=== PATIENT | female | born 1990 | race Caucasian/White ===

== ENCOUNTER 2020-03-29 07:35 | Inpatient (IN) ==
--- OUTSIDE RECORDS SUMMARY | 2020-03-29 07:41 | External Medical Summary | Continuity of Care Document ---
:1990 Author Name Jose Santiago Address Unavailable Unavailable , Care Team Providers Name Role Phone Unavailable Unavailable Unavailable Unavailable Unavailable Unavailable Problems Cerumen impaction (380.4) (H61.20) Chronic tonsillitis (474.00) (J35.01) Allergies and Adverse Reactions No Known Drug Allergies (Allergy) Medications Medications not documented Procedures Procedures not documented Immunizations Immunizations not documented Family History Unknown Family Member Family history of Lung Cancer (V16.1) Status: Active Co mments: Family History Mother Family history of Cancer Status: Active Family history of Hypertension (V17.49) Status: Active Grandfather Family history of Cancer Status: Active Grandmother Family history of Diabetes Mellitus (V18.0) Status: Active Father Family history of Diabetes Mellitus (V18.0) Status: Active Social History - Smoking Status Tobacco smoking consumption unknown Plan of Treatment Planned Observations Planned Goals not documented Results No Known Results Results not documented
[2020-03-29] MEDS ORDERED: OXYTOCIN 30 UNITS/500 ML BAG IV PRN ×3 (08:37→17:23)
--- NOTE | 2020-03-29 08:49 | History & Physical Report ---
Date of Service March 29, 2020 Assessment & Plan (1) Obesity affecting in third trimester, antepartum: Patient is a 29-year-old at 39 weeks and 4 days of gestation presenting for induction of labor at term due to obesity during and suspected macrosomia. Vital signs stable afebrile heart rate reassuring GBS negative Coronavirus testing negative We discussed possible risk of shoulder dystocia, see HPI for details Patient desires to think about it and then decide All questions were answered. (2) Macrosomia affecting management of mother in third trimester: Admission and Anticipated Discharge Date Admission Date: March 29, 2020 History of Present Illness Primary Care Provider: NO PCP Patient is a 29 yo at 39.4 wks, admitted for IOL at term for obesity and suspected macrosomia. She has no complaints. She denies ctxs/ LOF/VB/ Fever/ chills/ CP/ SOB/ AMEZQUITA/ Change in vision/nor COVID symptoms Reports good movements Her has been complicated by 1) Class III obesity 2) Hypothyroidism 3) Asthma, seasonal, mild 4) Anemia 5) Depression, on Zoloft 6) Suspected macrosomia: EFW was 4251 on 03/26 at office and todays bed side US 4430 gr. We discussed the risk of shoulder dystocia as clavicle fracture, brachial nerve injury, hypoxia even . We discussed ACOG's recommendations as primary if EFW over 11 pounds (5000 gr) with no GDM or 0 lb ( 4500 gr) with GDM She has passed GDM screening. She has delivered 8 lb 15 of baby in 2018. Understands shoulder dystocia is not predictable it may or may not happen during delivery. We also discussed the risk of primary as major surgery, bleeding, infection, injury to surrounding organs like bowels, bladder, ureters and longer recovery, risk of blood cooths in legs, lungs She understands all and desires to think about this and then decide. Allergies Allergy/AdvReac Type Severity Reaction Status Date / Time No Known Allergies Unverified 11/19/09 17:52 Home Medications Medication Instructions Recorded Confirmed Type Azithromycin (Z-Mitch) (Zithromax 0 PO UD #1 08/04/09 Rx (Z-Mitch)) None (Patient States No Home Meds) #0 11/19/09 History Patient History Medical History Anger Anxiety Depression Hypothyroidism Irregular heart beat Scoliosis Vaginal delivery Surgical History [place] teeth removed Family History Other Cervical cancer Diabetes Social History Smoking Status: Never smoker Hx Alcohol Use: No Preferred Language: Montserratian Communication Ability: Effective Gamma Operator Required: No Beliefs That Will Affect Care: None marital status: Legally Current Living Situation: Family Current Living Situation Comment: self and 2 children (ages 3 and 2 yr old daughters) Other Information That Helps Us Care for You: No Feels Safe at Home: Yes Safety Concerns: Feels Safe At This Time Assistive Devices: None OB History FT 's 2017: 7 lb 15 oz 2018: 8 lb 15 oz 's no complacations 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/o STD's Review of Systems All systems reviewed & are unremarkable except as noted in HPI & below Physical Exam Constitutional: WD/WN, vitals as above well nourished Gastrointestinal (Abdomen): normal bowel sounds, soft, nontender, no hepatosplenomegaly (gravid, Bruce 9-10 lb) Genitourinary: no vaginal lesions, no adnexal mass OB Exam Abdomen: + vertex (confirmed with bed side US) Manual OB Exam: + cervical dilation 3 cm (3-4 cm), + cervical effacement 50% and + station high OB Exam Monitor Tracing: + external uterine monitor used and + category I Results & Data ([facility]) Vital Signs (Past 12 Hours) Vital Signs Temp Pulse Resp BP 03/29/20 08:14 87 135/66 03/29/20 08:01 37.0 C 95 H 20 142/68 H 03/29/20 07:58 92 H 168/82 H 03/29/20 07:43 107 H 170/95 H
[2020-03-29 09:09] LABS: Hemoglobin 11.7 g/dL (12.0-16.0); Mean Corpuscular Hemoglobin 30.3 pg (25-34); Mean Corpuscular Hgb Conc 32.5 g/dL (32-36); Mean Corpuscular Volume 93.3 fL (80-100); Mean Platelet Volume 9.3 fL (7.4-10.4); Platelet Count 124 K/uL (130-400); RDW Coefficient of Variation 17.6 % (11.5-14.5); RDW Standard Deviation 59.4 fL (36.4-46.3); Red Blood Count 3.86 M/uL (4.2-5.4); White Blood Count 8.09 K/uL (4.8-10.8)
[2020-03-29] MEDS: LACTATED RINGER'S 1,000 ML IV PRN ×2 (09:10→14:37)
[2020-03-29 09:29] LABS: Albumin Level 2.9 gm/dl (3.4-5.0); BUN Creatinine Ratio 11.7 (10-20); Calcium 9.4 mg/dl (8.5-10.1); Creatinine Clr Calc Pharmacy 230.6 ml/min; Est GFR (African American) 147.7; Est GFR (Non-African American) 127.4; Potassium 3.8 mmol/L (3.5-5.1)
--- NOTE | 2020-03-29 09:31 | Obstetrical Progress Note ---
Date of Service March 29, 2020 Assessment & Plan Admission and Anticipated Discharge Date Admission Date: March 29, 2020 Subjective Patient has been thinking about delivery mode and decided to try vaginal. Will start pitocin and AROM Epidural for pain when she desires Results & Data ([facility]) Vital Signs (Past 12 Hours) Vital Signs Temp Pulse Resp BP 03/29/20 08:44 90 126/64 03/29/20 08:14 87 135/66 03/29/20 08:01 37.0 C 95 H 20 142/68 H 03/29/20 07:58 92 H 168/82 H 03/29/20 07:50 37.0 C 20 03/29/20 07:43 107 H 170/95 H
[2020-03-29 09:32] LABS: Albumin Globulin Ratio 0.8 (0.9-2); Bilirubin,Total 0.4 mg/dl (0.2-1); Globulin 3.7 gm/dl (2.5-4.0); Total Protein 6.6 gm/dl (6.4-8.2)
[2020-03-29] MEDS ORDERED: SODIUM CHLORIDE 0.9% INJ 10 ML VIAL ONE (14:31)
[2020-03-29] MEDS ORDERED: ePHEDrine sulfate 50 MG/ML AMP ONE (14:31)
[2020-03-29] MEDS ORDERED: fentaNYL 2MCG/ML ROPIVACAINE 1.25MG/ML 100 ML BAG EPI ONE (14:32)
[2020-03-29] MEDS ORDERED: fentaNYL citrate 100 MCG/2 ML VIAL ONE (14:32)
[2020-03-29] MEDS ORDERED: BUPIVACAINE 0.25% 30 ML VIAL ONE (14:32)
--- NOTE | 2020-03-29 14:46 | Anesthesiology Consultation ---
Date of Service March 29, 2020 Assessment & Plan (1) Encounter for pre-operative examination: Chart Review Chart Review: Acceptable Risk for Labor Epidural History Height/Weight Height: 5 ft 7 in Weight: 142.882 kg Allergies Allergy/AdvReac Type Severity Reaction Status Date / Time Latex, Natural Rubber Allergy Severe Blister Verified 03/29/20 09:47 Medications Home Medications Medication Instructions Recorded Confirmed Last Taken ferrous sulfate [iron] 325 mg PO DAILY 03/29/20 03/29/20 03/29/20 levothyroxine [Synthroid] 75 mcg PO DAILY 03/29/20 03/29/20 03/29/20 75 mcg prenat.vits,ama,mru-mhux-nrlfj 1 tab PO DAILY 03/29/20 03/29/20 03/29/20 [ Vitamin] sertraline [Zoloft] 100 mg PO DAILY 03/29/20 03/29/20 03/29/20 100 mg Active Medications Generic Name Dose Route Start Last Admin Trade Name Freq PRN Reason Stop Dose Admin Lactated Ringer's 1,000 mls @ 150 mls/hr 03/29/20 08:37 03/29/20 14:37 Lr IV 03/31/20 08:36 999 mls/hr .Q6H40M PRN Administration L&D Protocol Protocol Oxytocin 30 units in 500 mls @ 16 mls/hr 03/29/20 09:29 03/29/20 14:15 Pitocin IV 03/31/20 09:28 0.96 units/hr .Q24H PRN 16 mls/hr Labor Induction/Augmentation Titration Protocol 0.96 UNITS/HR Past Medical History Medical History (Updated 03/29/20 @ 14:45 by Candido Grijalva MD) Anger Anxiety Depression Hypothyroidism Irregular heart beat Obesity affecting in third trimester, antepartum Scoliosis Vaginal delivery Past Family History Family History Other Cervical cancer Diabetes Past Surgical History Surgical History [place] teeth removed Social History Smoking Status: Never smoker Hx Alcohol Use: No Physical Exam Vital Signs Last Vital Signs Temp 36.8 C 03/29/20 14:36 Pulse 107 H 03/29/20 14:42 Resp 22 03/29/20 14:36 BP 134/74 03/29/20 14:42 Pulse Ox 100 03/29/20 14:40 Testing Laboratory Results 03/29/20 08:54 03/29/20 08:54 Blood Type O Positive 03/29/20 08:54 Antibody Screen NEGATIVE 03/29/20 08:54
--- NOTE | 2020-03-29 14:55 | Obstetrical Progress Note ---
Date of Service March 29, 2020 Assessment & Plan Admission and Anticipated Discharge Date Admission Date: March 29, 2020 Subjective Patient is reevaluated She feels mild ctxs, not painful yet, pitocin is on 16 miu/min VE; 5/ 60%/ -2, AROM'ed, moderate meconium stained, abundant fluid FHR categ I Continue to monitor closely Epidural when she desires Results & Data ([facility]) Vital Signs (Past 12 Hours) Vital Signs Temp Pulse Resp BP Pulse Ox 03/29/20 14:50 99 H 100 03/29/20 14:45 106 H 100 03/29/20 14:42 107 H 134/74 03/29/20 14:40 99 H 100 03/29/20 14:36 36.8 C 22 03/29/20 14:35 107 H 100 03/29/20 14:30 96 H 99 03/29/20 14:27 100 H 133/78 03/29/20 13:02 98 H 117/72 03/29/20 12:26 36.8 C 20 03/29/20 12:23 85 130/60 03/29/20 12:03 90 136/63 03/29/20 10:02 82 18 130/72 03/29/20 08:44 90 126/64 03/29/20 08:14 87 135/66 03/29/20 08:01 37.0 C 95 H 20 142/68 H 03/29/20 07:58 92 H 168/82 H 03/29/20 07:50 37.0 C 20 03/29/20 07:43 107 H 170/95 H
[2020-03-29] MEDS ORDERED: fentaNYL 2MCG/ML ROPIVACAINE 1.25MG/ML 100 ML BAG EPI PRN (15:30)
[2020-03-29] MEDS ORDERED: ONDANSETRON INJ 2 MG/ML 2 ML VIAL IV PRN (15:30)
[2020-03-29] MEDS ORDERED: ePHEDrine sulfate 50 MG/ML AMP IV PRN (15:30)
[2020-03-29] MEDS ORDERED: NALOXONE HCL 0.4 MG/1 ML VIAL/CARP IV PRN (15:30)
[2020-03-29] MEDS ORDERED: NALOXONE HCL 1 MG in SODIUM CHLORIDE 0.9% 1000ML 1,000 ML IV PRN (15:30)
[2020-03-29] MEDS ORDERED: MINERAL OIL 30 ML UDC ONE (16:58)
[2020-03-29] MEDS ORDERED: DIPHTHERIA/TETANUS/PERTUSSIS 0.5 ML SYR/VIAL IM ONE (17:23)
[2020-03-29] MEDS ORDERED: miSOPROStoL 200 MCG TAB PR ONE (17:23)
[2020-03-29] MEDS ORDERED: MEASLES, MUMPS & RUBELLA VIRUS VIAL SQ ONE (17:23)
[2020-03-29] MEDS ORDERED: HYDROCORTISONE ACETATE 25 MG SUPP PR PRN (17:23)
[2020-03-29] MEDS ORDERED: ACETAMINOPHEN 325 MG TAB PO PRN (17:23)
[2020-03-29] MEDS ORDERED: BENZOCAINE 20% AER SPR 82.5 GM CAN EXT PRN (17:23)
[2020-03-29] MEDS ORDERED: SUPERCREAM 0.870% 15 GM JAR EXT PRN (17:23)
[2020-03-29] MEDS ORDERED: bisacodyL 10 MG SUPP PR PRN (17:23)
--- NOTE | 2020-03-29 17:28 | Anesthesia Procedure Note ---
Date of Service March 29, 2020 Anesthesia Post Epidural Note Vital Signs Vital Signs: Temp Pulse Resp BP Pulse Ox 36.8 C 109 H 20 141/78 H 100 03/29/20 16:01 03/29/20 17:02 03/29/20 16:01 03/29/20 17:02 03/29/20 17:00 Pain Intensity Abdomen: Pain Intensity: 2 Notes Mental Status: alert / awake / arousable and participated in evaluation Nausea / Vomiting: adequately controlled Pain: adequately controlled Airway Patency, RR, SpO2: stable & adequate BP & HR: stable & adequate Hydration State: stable & adequate Neuraxial Anesthesia: was administered and sensory block is resolving Anesthetic Complications: no major complications apparent Epidural: Removed without complications and With tip intact
[2020-03-29] MEDS: DOCUSATE SODIUM 100 MG CAP PO SCH (23:34)
[2020-03-30] MEDS: IBUPROFEN 600 MG TAB PO PRN ×4 (00:40→20:40)
--- NOTE | 2020-03-30 01:19 | Delivery Summary ---
DATE OF OPERATION: 03/29/2020 DETAILS OF DELIVERY: The patient was found to be fully dilated and desired to push. She pushed only once and delivered the head without difficulty. Shoulders came right after the head. Baby was handed off to the mother where mouth and nose were suctioned. Baby was vigorously crying and moving. Cord was clamped x2 and cut at 1 minute delay. Cord blood was obtained. Perineum and vagina were checked for lacerations. There was only a small first-degree perineal and left labial laceration. Those were repaired with 3-0 Vicryl on SH needle. Excellent hemostasis was achieved. Rest of the vagina was intact. Placenta was found to be in the vagina, delivered spontaneous as intact and complete. Uterus was explored, found to be empty. Lower segment was cleared of all clots and debris. Fundus was firm. EBL was 250 mL. IV oxytocin was started and rectal Cytotec was placed. Mom and baby tolerated the procedure well. Sponge, lap, needle count was correct x2. Baby was a viable male infant, Apgars 8/8, weight is 4125 gr. No complications happened. I was present during whole procedure. I attest to the content of the Intraoperative Record and any orders documented therein. Any exceptions are noted below. MEENAD
[2020-03-30] MEDS: LEVOTHYROXINE SODIUM 75 MCG TABLET PO SCH (06:17)
[2020-03-30 06:30] LABS: Hematocrit (blood only) 33.3 % (37-47); Hemoglobin 10.8 g/dL (12.0-16.0); Mean Corpuscular Hemoglobin 30.1 pg (25-34); Mean Corpuscular Hgb Conc 32.4 g/dL (32-36); Mean Corpuscular Volume 92.8 fL (80-100); Mean Platelet Volume 9.6 fL (7.4-10.4); Platelet Count 126 K/uL (130-400); RDW Coefficient of Variation 17.7 % (11.5-14.5); RDW Standard Deviation 59.8 fL (36.4-46.3); Red Blood Count 3.59 M/uL (4.2-5.4); White Blood Count 8.77 K/uL (4.8-10.8)
[2020-03-30] MEDS: DOCUSATE SODIUM 100 MG CAP PO SCH ×2 (08:51→20:40)
[2020-03-30] MEDS: SERTRALINE HCL 100 MG TABLET PO SCH (08:51)
[2020-03-30] MEDS: FERROUS SULFATE 325 MG TAB PO SCH (08:51)
[2020-03-30] MEDS: PRENATAL VITAMIN 1 TAB PO SCH (08:51)
--- NOTE | 2020-03-30 10:18 | Obstetrical Progress Note ---
Date of Service March 30, 2020 Assessment & Plan (1) Normal course: PPD #1 Pt doing well anticipate disch tomorrow Subjective Ambulation: ambulating normally Voiding: no voiding problems Passing Gas:: Yes Diet Tolerance:: regular diet Lochia:: Small Feeding Type:: breast feeding Review of Systems All systems reviewed & are unremarkable except as noted in HPI & below Physical Exam Constitutional WD/WN, vitals as above well developed and well nourished Eyes PERRL, conjunctivae normal, anicteric sclerae Neck trachea midline, no thyromegaly Respiratory normal respiratory effort, lungs clear to auscultation Auscultation: no crackles, no rales and no wheezes Cardiovascular RRR, no murmur, no edema Gastrointestinal (Abdomen) normal bowel sounds, soft, nontender, no hepatosplenomegaly Uterus is below umbilicus Musculoskeletal no cyanosis or clubbing, extremities motor strength 5/5 Skin no rashes, warm and dry Neurologic patellar DTR's 2+ bilat, sensation intact Psychiatric A+Ox3, euthymic affect Genitourinary normal external appearance Results & Data ([facility]) Vital Signs (Past 12 Hours) Vital Signs Temp Pulse Pulse Resp BP Pulse Ox 03/30/20 07:46 37 C 82 16 112/70 98 03/30/20 04:00 36.7 C 90 18 130/80 03/30/20 00:00 36.7 C 93 H 18 137/82
[2020-03-30] MEDS ORDERED: bisacodyL 5 MG TABEC PO SCH (20:00)
[2020-03-31] MEDS: IBUPROFEN 600 MG TAB PO PRN (03:47)
[2020-03-31] MEDS: LEVOTHYROXINE SODIUM 75 MCG TABLET PO SCH (06:29)
[2020-03-31 06:34] LABS: Hematocrit (blood only) 31.8 % (37-47); Hemoglobin 9.9 g/dL (12.0-16.0)
[2020-03-31] MEDS: DOCUSATE SODIUM 100 MG CAP PO SCH (09:26)
[2020-03-31] MEDS: FERROUS SULFATE 325 MG TAB PO SCH (09:27)
[2020-03-31] MEDS: PRENATAL VITAMIN 1 TAB PO SCH (09:27)
--- NOTE | 2020-03-31 09:50 | Emergency Department Note ---
ED Visit Note Is a 29-year-old female who was brought down from the [facility] for evaluation of left-sided anterior epistaxis. The epistaxis started this morning while she was in the OB suite. She delivered a baby 2 days ago. The bleeding was moderate. I did evaluate the nose. The origin of the bleeding was difficult to assess as the patient was bleeding rather heavily. For this reason a 4.5 cm Rhino Rocket was placed and this controlled the bleeding. There was minimal to no blood in the posterior oropharynx prior to the placement of the Rhino Rocket. There was no bleeding from anterior or posterior aspects of the nasopharyngeal airway after placement. The patient was sent back to the OB floor. 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 .
[2020-03-31] MEDS ORDERED: SILVER NITR/POTASSIUM NITRATE APPLICATOR ONE (10:06)
[2020-03-31] MEDS ORDERED: SODIUM CHLORIDE 0.65% NA SOLN 45 ML (OCEAN) SCH (10:45)
[2020-03-31] MEDS: SERTRALINE HCL 100 MG TABLET PO SCH (11:11)
--- NOTE | 2020-03-31 11:23 | Obstetrical Progress Note ---
Date of Service March 31, 2020 Assessment & Plan Admission and Anticipated Discharge Date Admission Date: March 29, 2020 Subjective PPD#2 stable tolerating diet passing gas nosebleed x2 and now stopped after cauterization in ER this morning Physical Exam Constitutional: WD/WN, vitals as above well developed and comfortable abdomen soft and nontender no edema neg Blair's for d/c later today follow up Thursday with ENT Results & Data ([facility]) Vital Signs (Past 12 Hours) Vital Signs Temp Pulse Resp BP 03/31/20 07:49 36.6 C 85 16 123/80 03/30/20 23:50 36.7 C 81 16 111/78
[2020-03-31] MEDS ORDERED: OXYMETAZOLINE 0.05% 30 ML BTL NAE ONE ×2 (11:30)
[2020-03-31] MEDS ORDERED: OXYMETAZOLINE 0.05% 30 ML BTL SCH ×2 (21:00)
== END 2020-03-31 15:15 | disposition home or self-care (01) | DRG 806 ==
LOC: 4S1 07:35 → 4S2 21:43

== ENCOUNTER 2023-11-24 02:29 | Inpatient (IN) ==
--- OUTSIDE RECORDS SUMMARY | 2023-11-24 08:11 | External Medical Summary | Summary of Care ---
Author Name Unknown Organization [facility] Address [address] [place] [address] Phone [phone] Care Team Providers Care Business Process Lead Name Role Phone Vivi Calvo MD Primary Care Prov ider Reason for Visit * Reason Onset Date Comments Anemia Follow-Up 11/19/2023 Encounter Details Date Type Department Care Team (Late st Contact Info) Description 11/03/2023 10:00 AM EDT Pharmacy Pharmacy, [place] [address] [place] [address] Clinic, Anemia [address] [place] [address] Iron deficiency anemia, unspecified iron deficiency anemia type* Allergies Active Allergy Reactions Criticality Noted Date Comments Latex Rash 03/26/2020 documented as of this encounter (statuses as of 11/19/2023) Medications Medication Sig Dispensed Refills Start Date End Date Status ProAir HFA 108 (90 Base) MCG/ACT Inhalation Aerosol SolutionIndications: Intermittent asthma with reliever use up to twice per week without complication Inhale 2 Puffs by mouth 4 times a day. 18 g 5 12/16/2019 Active busPIRone HCl 10 MG Oral Tablet (Buspar)Indications: Anxiety TAKE ONE TABLET BY MOUTH IN THE MORNING AND BEFORE BEDTIME 180 Tablet 1 10/01/2022 Active Levothyroxine Sodium 75 MCG Oral Tablet (Levoxyl)Indications :Acquired hypothyroidism TAKE ONE TABLET BY MOUTH FIRST THING IN THE MORNING AT LEAST 30 MINUTES BEFORE BREAKFAST OR OTHER MEDICATIONS 90 Tablet 3 11/07/2022 Active Sertraline HCl 50 MG Oral Tablet (Zoloft) Take 1.5 Tablets by mouth in the morning. Active 28-0.8 MG Oral Tablet Take by mouth. Active D-Care Glucometer w/Device Kit Use as directed. Use as directed to check BG 4 times daily 1 Kit 06/17/2023 Active Additional Information Patient not taking.Reported on 11/02/2023 Lancets As directed. 90 Each 1 06/17/2023 Active Additional Information Patient not taking.Reported on 11/02/2023 Iron-Vitamin C 65-125 MG Oral Tablet (Vitron C)Indications:Antepa rtum anemia complicating Take 1 Tablet by mouth in the morning and 1 Tablet before bedtime. 180 Tablet 1 09/03/2023 Active Additional Information Patient not taking.Reported on 10/28/2023 Docusate Sodium 100 MG Oral Capsule (Colace)Indications: Antepartum anemia complicating Take 1 Capsule by mouth 2 times a day as needed for Constipation. 60 Capsule 5 09/03/2023 Active Ondansetron 4 MG Oral Tablet Disintegrating (Zofran) Place 1 Tablet on tongue every 8 hours as needed for Nausea. dissolve on tongue. 30 Tablet 11/02/2023 Active documented as of this encounter (statuses as of 11/19/2023) Active Problems Problem Noted Date Diagnosed Date Carrier of group B Streptococcus 11/04/2023 Encounter for supervision of other normal , third trimester 10/28/2023 Limited care in third trimester 024 Iron deficiency anemia 09/25/2023 Iron deficiency anemia 09/24/2023 Class 3 obesity 05/21/2023 Hypothyroid in , antepartum 05/21/2023 Maternal asthma complicating Marijuana use during 05/21/2023 Tobacco smoking affecting in second tr imester 05/21/2023 Bipolar disease during in second trime ster 05/21/2023 Morbid obesity with BMI of 45.0-49.9, adult 07/09/2022 Body mass index (BMI) of 40.0 to 44.9 in adult 0 05/19/2022 Overview: Per Obesity protocol - Class 3-BMI 40+: Recommend restricting weight gain during to 11-20 pounds. Consider referral for nutrition consult. For patients with Class 3 obesity, recommend baseline pre-eclamptic labs with serum AST/ALT/creatinine and 24 hour urine protein FILI if not already done. Recommend obtaining early Gestational Diabetes Mellitus screen and repeat again at 26-28 weeks if early screen is normal. Recommend Maternal Medicine ultrasound for anatomy screen at 20 weeks and for growth every 4 weeks after 24 weeks. For patients with Class 3 obesity, we recommend surveillance twice weekly to begin at 36 weeks and delivery by EDC. Recommend anesthesia consult during the antepartum period. Anxiety 12/13/2021 Family history of diabetes mellitus 12/13/2021 Difficulty controlling anger 04/02/2021 Antepartum anemia complicating 020 Overview: Blood management referral placed, but did not have a working phone to be contacted for appt. Acquired hypothyroidism 12/15/2019 Moderate episode of recurrent major depressive d isorder 12/15/2019 Intermittent asthma with rel iever use up to twice per week without complication 12/15/2019 Idiopathic scoliosis 12/20/2003 Estimated Date of Delivery Comme nts Yes 11/30/2023 Based on Ultraso und documented as of this encounter (statuses as of 11/19/2023) Resolved Problems Problem Noted Date Diagnosed Date Resolved Date Hyperglycemia 12/13/2021 05/06/2022 Hypothyroidism affecting 01/24/2020 07/18/2020 Overview: TSH Results: TSH(uIU/mL) Randa Dt/Tm Resulted Value Status 03/05/20 1:13P 03/05/20 2.44 FINAL 12/16/19 11:34A 12/16/19 2.11 FINAL 05/23/05 8:06A 05/23/05 1.88 FINAL Maternal asthma complicating 01/24/2020 07/18/2020 Anger 12/19/2019 05/06/2022 Supervision of other normal 12/19/2019 04/16/2020 Overview: Records reviewed--tsh 1.890. H&H 11.1/35.9, plt 163, neg urine culture, gc/ct neg, early 1 hr glucose 133, + marijuana screen, pap normal, rubella immune, hiv neg, hep b neg, FTS low risk, rpr neg quad neg ED by u/s 09/20/2019 at 34e1p-604/01/2020 Morbid obesity with BMI of 45.0-49.9, adult 12/19/2019 05/21/2022 Overview: Class 3-BMI 40+: Recommend restricting weight gain during to 11-20 pounds. Consider referral for nutrition consult. For patients with Class 3 obesity, recommend baseline pre-eclamptic labs with serum AST/ALT/creatinine and 24 hour urine protein FILI if not already done. Recommend obtaining early Gestational Diabetes Mellitus screen and repeat again at 26-28 weeks if early screen is normal. Recommend Maternal Medicine ultrasound for anatomy screen at 20 weeks and for growth every 4 weeks after 24 weeks. For patients with Class 3 obesity, we recommend surveillance twice weekly to begin at 36 weeks and delivery by EDC. Recommend anesthesia consult during the antepartum period. Incidental 12/15/2019 020 VACCINATION NOT DONE, PATIENT DECLINED - HPV 9 12/19/2019 Overview: ADVISED OF RISK OF OR PERMINANT DISABILITY Other acne 12/20/2003 12/19/2019 Family planning counseling 12/20/2003 0 05/06/2022 documented as of this encounter (statuses as of 11/19/2023) Immunizations Name Administration Dates Next Due Meningococcal Conjugate Vacc ine (Menactra/Menveo) 05/20/2005 PPD 07/30/2022, 3,09/18/2008,09/05 Seasonal Influenza, Trivalen t, (IIV3), with Preserv, (Fluzone) 01/06/2007 TDAP (age 10 and older)(Boostrix) 01/02/2020 TDAP, Age 7 and older, IM (Adacel) 04/19/2007 documented as of this encounter Social History Tobacco Use Types Packs/Day Years Used Date Smoking Tobacco: Former Cigarettes Smokeless Tobacco: Never Alcohol Use Standard Drinks/Week Comments Not Currently 0 (1 standard drink = 0.6 oz pur e alcohol) PHQ-2 Answer Date Recorded PHQ-2 Score 2 12/15/2019 Hunger Vital Sign Answer Date Recorded Within the past 12 months, y ou worried that your food would run out before you got the money to buy more. Never true 07/26/19 24 Within the past 12 months, t he food you bought just didn't last and you didn't have money to get more. Never true 07/26/2023 [place] Depression Scale Answer Date Recorded [place] Depression Scale Total 14 05/18/2023 The thought of harming myself has occurred to me . Never 05/18/2023 Childcare Answer Date Recorded Do you feel overwhelmed with taking care of a child, family member or friend? No 07/26/2023 Does your family need help f inding childcare? (Household - for ages 0-17 years) Not on file 07/26/2023 Clothing Answer Date Recorded Have you been unable to get clothing when it was really needed? No 07/26/2023 Is your family able to get c lothes or diapers when needed? (Household - for ages 0-17 years) Not on file 07/26/2023 Personal Safety Answer Date Recorded Do you feel unsafe or have concerns for your saf ety? No 07/26/2023 Do you have concerns for you r family's safety? (Household - for ages 0-17 years) Not on file 07/26/2023 Utilities Answer Date Recorded Do you have trouble paying y our heating, water, or electric bill? No 07/26/2023 Is your family able to pay t he heat, water, or electric bill? (Household - for ages 0-17 years) Not on file 07/26/2023 Does your family have access to good internet? (Household - for ages 0-17 years) Not on file 07/26/2023 Employment Status Answer Date Recorded Are you unemployed or without regular income? No 07/26/2023 Does the household have a re gular source of income? (Household - for ages 0-17 years) Not on file 07/26/2023 Social Connections Answer Date Recorded How often do you feel lonely or isolated from those around you? Sometimes 07/26/2023 Financial Resource Strain Answer Date R ecorded Do you have any trouble payi ng for your medications, or do you think you might in the future? No 07/26/2023 Does your family have troubl e paying for medicine? (Household - for ages 0-17 years) Not on file 07/26/2023 Transportation Needs Answer Date Record ed READ ONLY Do you have troubl e getting a ride to medical visits or work? Never True 07/26/2023 Does your family have a hard time getting a ride to doctors visits? (Household - for ages 0-17 years) Not on file 07/26/2023 Has lack of transportation k ept you from medical appointments, meetings, work, or from getting things needed for daily living? Check all that apply. (Adult - for ages 18 years and over) Not on file 07/26/2023 Do you (or your family) have trouble finding or paying for a ride (transportation)? (Household - for ages 0-17 years) Not on file 07/26/2023 Housing Stability Answer Date Recorded Do you currently live in a s helter or have no steady place to sleep at night? No 07/26/2023 READ ONLY Do you think you a re at risk of becoming homeless? No 07/26/2023 Does your family worry about paying for your home or becoming homeless? (Household - for ages 0-17 years) Not on file 0 07/26/2023 Are you homeless or worried that you might be in the future? (Adult - for ages 18 years and over) Not on file Are you (or your family) arvin eless or worried that you might be in the future? (Household - for ages 0-17 years) Not on file Food Insecurity Answer Date Recorded Do you need food for this week? No 07/26/2023 Are you able to get enough f ood for your family? (Household - for ages 0-17 years) Not on file 07/26/2023 Does your family need food t his week? (Household - for ages 0-17 years) Not on file 07/26/2023 Do you always have enough fo od for your family? (Household - for ages 0-17 years) Not on file 07/26/2023 Estimated Date of Delivery Comme nts Yes 11/30/2023 Based on Ultraso und Sex and Gender Information Value Date Recorded Sex Assigned at Female 10/01/2022 7:45 AM EDT Gender Identity Female 10/01/2022 7:45 AM EDT Sexual Orientation Straight 10/01/2022 7: 45 AM EDT Job Start Date Occupation Industry Not on file Not on file Not on file documented as of this encounter Progress Notes * Silvia Jolley RP - 11/19/2023 12:43 PM EDT Called each number in patient's chart. Patient was on the way to a job interview and asked if she can call back. Provided [phone]. When patient calls back, please provide number for infusion center for [facility] for patient to call and schedule. [phone]. ThanksSilvia [facility] Clinical Pharmacist documented in this encounter Plan of Treatment Upcoming Encounters Date Type Department Care Team (Late st Contact Info) Description 11/24/2023 10:00 AM EDT Pharmacy Pharmacy, [address] [address] Clinic, [address] [address] 11/26/2023 4:20 PM EDT Office Visit Family Medicine [address] [place] [phone] Camelia Goins [address] [place] [phone] Health Maintenance Due Date Last Done Comments Pneumococcal Vaccine: Pediatrics (0 to 5 Years) and At-Risk Patients (6 to 64 Years) (1 of 2 - PCV) 11/21/1995 HPV/Co-Test 11/21/2019 Depression Monitoring 12/14/2020 12/15/2019 *SPIROMETRY ONCE FOR ASTHMA-ADULT 01/30/2022 COVID-19 Vaccine ( - 2023- season) 2023 Influenza Vaccine (FLU shot) (#1) 2023 01/15/2016, 01/06/2007, 01/06/2007, Additional history exists Cervical Cancer Screening 04/18/2024 Pap Smear 04/18/2024 04/18/2021 TSH 09/02/2024 09/03/2023, 08/08, 06/17/2023, Additional history exists DTap/Tdap Vaccines (9 - Td or Tdap) 01/01/2030 01/02/2020, 12/15/2019 (Declined), 04/19/2007, Additional history exists Hepatitis B Vaccine Completed 12/08/2002, 07/07/2002, 04/14/2002 MENINGOCOCCAL (MENACTRA/MENVEO) Aged Out 05/20/2005, 05/20/2005 No longer eligibl e based on patient's age to complete this topic HPV (Gardasil) Vaccine Aged Out No lo nger eligible based on patient's age to complete this topic documented as of this encounter Medical Devices Not on filedocumented as of this encounter Visit Diagnoses Diagnosis Iron deficiency anemia, unspecified iron deficiency anemia type- Primary documented in this encounter Care Teams Business Process Lead Relationship Specialty Start Date End Date Vivi Calvo MD [address] [place] [address] [place] [phone] PCP - General Family Medicine 01/12/20 documented as of this encounter
--- OUTSIDE RECORDS SUMMARY | 2023-11-24 08:11 | External Medical Summary | Summary of Care ---
Author Name Unknown Organization [facility] Address [address] [facility] [place] [address] Phone [phone] Care Team Providers Care Nurse Practitioner Physician Assistant Name Role Phone Vivi Calvo MD Primary Care Prov ider Reason for Visit * Reason Onset Date Comments Appointment 11/19/2023 Encounter Details Date Type Department Care Team (Late st Contact Info) Description 11/19/2023 Telephone Gynecology/Obstetrics [facility] [address] [place] [phone] Noris Thomas CRNP [address] [place] [phone] Appointment Allergies Active Allergy Reactions Criticality Noted Date [...] quad neg ED by u/s 09/20/2019 at 30s1f-304/01/2020 Morbid obesity with BMI of 45.0-49.9, adult [...] money to get more. Never true 07/26/2023 [place] Depression Scale Answer Date Recorded [place] Depression Scale Total 14 05/18/2023 The thought [...] on file documented as of this encounter Plan of Treatment Upcoming Encounters Date Type Department Care Team (Late st Contact Info) Description 11/26/2023 4:20 PM EDT Office Visit Family Medicine [address] [place] [phone] Camelia Goins [address] [place] [phone] Health Maintenance Due Date Last Done Comments Pneumococcal Vaccine: Pediatrics (0 to 5 Years) and At-Risk Patients (6 to 64 Years) (1 of 2 - PCV) 11/21/1995 HPV/Co-Test 11/21/2019 Depression Monitoring 12/14/2020 12/15/2019 *SPIROMETRY ONCE FOR ASTHMA-ADULT 01/30/2022 COVID-19 Vaccine ( season) 2023 Influenza Vaccine (FLU shot) (#1) [...] Not on filedocumented as of this encounter Care Teams Nurse Practitioner Physician Assistant Relationship Specialty Start Date End Date Vivi Calvo MD [address] [place] [address] [place] [phone] PCP - General Family Medicine 01/12/20 documented as of this encounter
[2023-11-24] MEDS ORDERED: LIDOCAINE 1% LOCAL 20 ML VIAL INFIL PRN (09:37)
[2023-11-24] MEDS ORDERED: CALCIUM CARBONATE 500 MG CHEWABLE TAB PO PRN (09:37)
[2023-11-24] MEDS ORDERED: OXYTOCIN 30 UNITS/NSS 30 UNITS/500 ML BAG IV PRN (09:39)
[2023-11-24 09:56] LABS: Amphetamines+Metham, Urine Neg (Neg); Barbiturates, Urine Neg (Neg); Benzodiazepine, Urine Neg (Neg); Cocaine, Urine Neg (Neg); Fentanyl, Urine Neg (Neg); MDMA (Ecstacy), Urine Neg (Neg); Marijuana, Urine Pos (Neg); Methadone, Urine Neg (Neg); Opiate, Urine Neg (Neg); Phencyclidine, Urine Neg (Neg)
[2023-11-24] MEDS: LACTATED RINGER'S 1,000 ML IV PRN (10:00)
[2023-11-24 10:12] LABS: Hematocrit (blood only) 28.3 % (37.0-47.0); Hemoglobin 9.4 g/dl (12.0-16.0); Mean Corpuscular Hemoglobin 28.8 pg (25.0-34.0); Mean Corpuscular Hgb Conc 33.2 g/dL (32.0-36.0); Mean Corpuscular Volume 86.8 fL (80.0-100.0); Mean Platelet Volume 9.7 fL (9.4-12.4); Platelet Count 128 K/uL (130-400); RDW Coefficient of Variation 16.6 % (11.5-14.5); RDW Standard Deviation 52.2 fL (36.4-46.3); Red Blood Count 3.26 M/uL (4.20-5.40); White Blood Count 8.04 K/ul (4.8-10.8)
--- NOTE | 2023-11-24 10:46 | History & Physical Report ---
Date of Service November 24, 2023 Assessment & Plan (1) Bipolar 1 disorder: (2) Smoking: (3) Medical marijuana use: (4) Anemia: (5) Asthma: (6) Hypothyroidism: (7) Depression: (8) Obesity affecting in third trimester, antepartum: Plan: 33-year-old -0-0-3 at 39 weeks and 1 day gestation presenting today for induction of labor at term for class III obesity during , Vital signs stable afebrile, GBS positive, heart rate reassuring, Cervix unfavorable, Compound presentation of fetus, confirmed vertex presentation with fingers/hands by ultrasound, Discussed the findings and options of either proceeding with cervical ripening ambulating around home hoping hand will retract during labor and the head will present into the pelvis better. patient understands hand may need to be pushed inside and may also prolapse out and requiring emergency . We also discussed proceeding with primary and tubal sterilization is patient desires for her contraceptive method. After long discussion patient decided to go for trial of vaginal with cervical ripening and then plan to have tubal sterilization later, All questions were answered, Plan to admit, monitor, penicillin for GBS, Cervidil for cervical ripening. (9) Compound presentation of fetus: (10) GBS (group B Streptococcus carrier), +RV culture, currently : Admission and Anticipated Discharge Date Admission Date: November 24, 2023 History of Present Illness Primary Care Provider: Vivi Doe MD patient is a 33-year-old -0-0-3 at 39 weeks and 1 day gestation who was scheduled for induction of labor at term for class III obesity. She feels well no complaints today. She has irregular contractions but they are not painful, she denies leakage of fluid or vaginal bleeding. She reports good movements. Her has been complicated by 1) Class III obesity 2) Hypothyroidism 3) Asthma, seasonal, mild 4) Anemia 5) Depression, on Zoloft, Buspar 6) History of bipolar disorder, on medications as above, 7) GBS positive 8) Smoker, tobacco 9) medical marijuana She has history of easy/fast spontaneous vaginal deliveries per patient. She delivered a 9 pound 3 ounce baby in 2020 by myself with no complications. Her p rior/second baby was 8 pounds 15 ounces delivered with no complications. She is hoping to have another easy labor and delivery today. She plans to have tubal sterilization. Allergies Allergy/AdvReac Type Severity Reaction Status Date / Time Latex, Natural Rubber Allergy Severe Blister Verified 06/10/23 10:46 Home Medications Medication Instructions Recorded Confirmed Type levothyroxine 75 mcg tablet 75 mcg PO QAM 03/29/20 11/24/23 History (Synthroid) sertraline 100 mg tablet (Zoloft) See Rx Instructions .Route .COMPLEX 03/29/20 11/24/23 History buspirone 10 mg tablet 15 mg PO TID 06/10/23 11/24/23 History vits no.130-ferrous fum 1 tab PO QAM 06/10/23 10/27/23 History 27 mg iron-folic acid 800 mcg tablet ( Vitamin) sertraline 25 mg tablet See Rx Instructions .Route .COMPLEX 06/10/23 11/24/23 History Patient History Medical History Bipolar 1 disorder Limited care Smoking Medical marijuana use Anemia Asthma Irregular heart beat Scoliosis Hypothyroidism Anxiety Anger Depression Vaginal delivery Surgical History Hx of tonsillectomy [place] teeth removed Family History Other Cervical cancer Diabetes Social History Smoking Status: Current every day smoker Tobacco Type: Cigarettes packs per day: 10; Cigarettes Per Day: 5; Second Hand Exposure: Yes; Do You Dip or Chew Tobacco: No; Tobacco Cessation Education Requested by Patient: No Hx Alcohol Use: No Hx Substance Use: Yes Prescribed Medications: Marijuana Last Used Substance: Hours (ago) Substance Use Type Other:: Has her marijuana card. Preferred Language: Bruneian Communication Ability: Effective Visual Impairment: No Limitations Machine Brush Maker Required: No Beliefs That Will Affect Care: None marital status: Single marital status details: Yuriy Sanders Current Living Situation: Spouse Current Living Situation Comment: Yuriy- Significant Other, 3 kids current occupational status: employed current occupation: [employer] Other Information That Helps Us Care for You: No Feels Safe at Home: Yes Safety Concerns: Feels Safe At This Time Diet: regular Assistive Devices: None Review of Systems as per Subjective / HPI Physical Exam Constitutional: WD/WN, vitals as above well developed, well nourished, + obese and comfortable Gastrointestinal (Abdomen): normal bowel sounds, soft, nontender, no hepatosplenomegaly ( Gravid) Genitourinary: normal external appearance OB Exam Abdomen: + vertex ( compound with fingers/hand) Manual OB Exam: + cervical dilation 1 cm, + cervical effacement 20% and + station high OB Exam Monitor Tracing: + external uterine monitor used and + category I bedside ultrasound is performed by myself, vertex presentation is confirmed, presenting with hand/fingers, heart rate and multiple movements seen, placenta anterior, amniotic fluid volume is normal Results & Data Vital Signs (Past 12 Hours) Vital Signs Temp Pulse Resp BP 11/24/23 08:43 36.8 C 18 11/24/23 08:35 77 149/68 H Laboratory Results Lab Results 11/24/23 11/24/23 Range/Units 08:10 09:48 WBC 8.04 (4.8-10.8) K/ul RBC 3.26 L (4.20-5.40) M/uL Hgb 9.4 L (12.0-16.0) g/dl Hct 28.3 L (37.0-47.0) % MCV 86.8 (80.0-100.0) fL MCH 28.8 (25.0-34.0) pg MCHC 33.2 (32.0-36.0) g/dL RDW Std Deviation 52.2 H (36.4-46.3) fL RDW Coeff of Danitza 16.6 H (11.5-14.5) % Plt Count 128 L (130-400) K/uL MPV 9.7 (9.4-12.4) fL Urine Opiates Screen Neg (Neg) Ur Methadone, Qual Neg (Neg) Urine Fentanyl Screen Neg (Neg) Urine Barbiturates Neg (Neg) Ur Phencyclidine (PCP) Neg (Neg) U Amphetamin/Meth Scrn Neg (Neg) MDMA (Ecstasy) Screen Neg (Neg) U Benzodiazepines Scrn Neg (Neg) Ur Cocaine Metabolite Neg (Neg) U Marijuana (THC) Screen Pos H (Neg) (4) Anemia Anemia type: iron deficiency Iron deficiency anemia type: inadequate dietary iron intake Qualified Code(s): D50.8 - Other iron deficiency anemias (5) Asthma Asthma severity: mild Asthma persistence: intermittent Asthma complication type: uncomplicated Qualified Code(s): J45.20 - Mild intermittent asthma, uncomplicated (6) Hypothyroidism Hypothyroidism type: acquired Qualified Code(s): E03.9 - Hypothyroidism, unspecified (7) Depression Depression Type: other depression Qualified Code(s): F32.89 - Other specified depressive episodes (8) Obesity affecting in third trimester, antepartum Obesity type affecting : other obesity Qualified Code(s): O99.213 - Obesity complicating , third trimester; E66.8 - Other obesity (9) Compound presentation of fetus Fetus number: single or unspecified fetus Qualified Code(s): O32.6XX0 - Maternal care for compound presentation, not applicable or unspecified
[2023-11-24] MEDS ORDERED: SODIUM CHLORIDE 0.9% 250 ML IV PRN (10:51)
[2023-11-24] MEDS: DINOPROSTONE 10 MG INSERT PV ONE (11:02)
[2023-11-24 11:13] LABS: Alanine Aminotransferase 8 U/L (7-52); Albumin Globulin Ratio 1.5 (0.9-2); Albumin Level 3.2 gm/dl (3.4-5.0); Alkaline Phosphatase 100 U/L (34-104); Anion Gap 7 (3-11); Aspartate Aminotransferase 10 U/L (13-39); BUN Creatinine Ratio 13.3 (10-20); Bilirubin,Total 0.3 mg/dl (0.2-1.0); Blood Urea Nitrogen 6 mg/dl (6-23); Calcium 8.4 mg/dl (8.6-10.3); Carbon Dioxide 24 mmol/L (21-32); Chloride 107 mmol/L (98-107); Creatinine Clr Calc Pharmacy 247.6 ml/min; Est GFR (African American) > 150.0 ml/min; Est GFR (Non-African American) 130.7 ml/min; Globulin 2.2 gm/dl (2.5-4.0); Glucose 63 mg/dl (70-99(Fasting)); Potassium 3.5 mmol/L (3.5-5.1); Sodium 138 mmol/L (136-145); Total Protein 5.4 gm/dl (6.0-8.3)
[2023-11-24 11:34] LABS: Creatinine Urine Random 74.8 mg/dl; Protein Creatinine Ratio Urine 0.1 (0-0.2); Total Protein Urine Random 9.9 mg/dl (0-11.9)
[2023-11-24] MEDS ORDERED: PENICILLIN GK 3 MU in DEXTROSE 5% 100 ML IV SCH (12:00)
[2023-11-24] MEDS: SERTRALINE HCL 50 MG TABLET PO SCH ×2 (14:14)
[2023-11-24] MEDS ORDERED: BUTORPHANOL TARTRATE 2 MG/ML VIAL IV PRN (14:16)
[2023-11-24] MEDS: busPIRone 15 MG TAB PO SCH (14:34)
--- NOTE | 2023-11-24 15:24 | Obstetrical Progress Note ---
Date of Service November 24, 2023 Assessment & Plan Admission and Anticipated Discharge Date Admission Date: November 24, 2023 Subjective Patient is walking in carr ways, seems comfortable and smiling Feels mild irregular ctxs, no painful Continue to monitor Results & Data Vital Signs (Past 12 Hours) Vital Signs Temp Pulse Resp BP 11/24/23 14:09 84 142/79 H 11/24/23 11:07 78 137/64 11/24/23 10:55 82 130/66 11/24/23 08:43 36.8 C 18 11/24/23 08:35 77 149/68 H
[2023-11-24] MEDS: PENICILLIN GK 6 MU in DEXTROSE 5% 250 ML IV ONE (18:40)
--- NOTE | 2023-11-24 19:22 | Obstetrical Progress Note ---
Date of Service November 24, 2023 Assessment & Plan Admission and Anticipated Discharge Date Admission Date: November 24, 2023 Subjective Patient is reevaluated. She had gush of clear fluid at 18:15 Feels well, mild cramping No pain VE: 2/ 30%/ -4, vertex, no finger nor hand FHR categ I [place] no contractions PCN is being given now Continue to monitor Sign out to Dr Castrejon Results & Data Vital Signs (Past 12 Hours) Vital Signs Temp Pulse Resp BP 11/24/23 18:52 82 143/85 H 11/24/23 18:22 82 155/68 H 11/24/23 18:16 37.1 C 11/24/23 15:28 75 138/72 11/24/23 15:27 16 11/24/23 15:27 36.8 C 16 11/24/23 14:09 84 142/79 H 11/24/23 11:07 78 137/64 11/24/23 10:55 82 130/66 11/24/23 08:43 36.8 C 18 11/24/23 08:35 77 149/68 H
--- NOTE | 2023-11-24 20:25 | Anesthesiology Consultation ---
Date of Service November 24, 2023 Assessment & Plan Chart Review Chart Review: Patient NOT seen in Pre Admission Testing and Acceptable Risk for Labor Epidural Consults Requested none ASA ASA3 Proposed Anesthesia Anesthesia Type: Labor Epidural Risk / Benefits Reviewed With: PT / POA / Parent / Guardian, Accepts Plan and Informed Consent Obtained History Height/Weight Height: 5 ft 7 in Weight: 130.181 kg Allergies Allergy/AdvReac Type Severity Reaction Status Date / Time Latex, Natural Rubber Allergy Severe Blister Verified 06/10/23 10:46 Medications Home Medications Medication Instructions Recorded Confirmed Last Taken levothyroxine 75 mcg tablet 75 mcg PO QAM 03/29/20 11/24/23 11/24/23 06:00 (Synthroid) sertraline 100 mg tablet (Zoloft) See Rx Instructions .Route .COMPLEX 03/29/20 11/24/23 11/24/23 06:00 buspirone 10 mg tablet 15 mg PO TID 06/10/23 11/24/23 11/24/23 06:00 vits no.130-ferrous fum 1 tab PO QAM 06/10/23 10/27/23 10/27/23 27 mg iron-folic acid 800 mcg tablet ( Vitamin) sertraline 25 mg tablet See Rx Instructions .Route .COMPLEX 06/10/23 11/24/23 11/24/23 06:00 Active Medications Generic Name Dose Route Start Last Admin Trade Name Freq PRN Reason Stop Dose Admin Buspirone HCl 15 mg 11/24/23 14:00 11/24/23 20:37 Buspirone 15 Mg Tab PO 12/24/23 13:59 Not Given TID MALIK Lactated Ringer's 1,000 mls @ 150 mls/hr 11/24/23 09:37 11/24/23 20:29 Lr IV 11/26/23 09:36 Infused .Q6H40M PRN Infusion L&D Protocol Protocol Sertraline HCl 100 mg 11/24/23 10:45 11/24/23 14:14 Sertraline Hcl 50 Mg Tablet PO 12/24/23 10:44 Not Given DAILY MALIK Sertraline HCl 25 mg 11/24/23 11:00 11/24/23 14:14 Sertraline Hcl 50 Mg Tablet PO 12/24/23 10:59 Not Given DAILY MALIK NPO Date Last Intake of Fluids: 11/24/23 Time Last Intake of Fluids: 08:00 Date Last Intake of Solids: 11/24/23 Time Last Intake of Solids: 17:00 Past Medical History Medical History Bipolar 1 disorder Limited care Smoking Medical marijuana use Anemia Asthma Irregular heart beat Scoliosis Hypothyroidism Anxiety Anger Depression Vaginal delivery Exercise / Class Metabolic Activity 1 > 8 Run/Swim/Ski/Tennis Past Family History Family History Other Cervical cancer Diabetes Past Surgical History Surgical History Hx of tonsillectomy [place] teeth removed Past Anesthesia History No Hx of Anesthesia Complications and No Family Hx of Anesthesia Complications History of PONV No Hx of PONV and No Hx of Motion Sickness Social History Smoking Status: Current every day smoker Smoking cigarettes per day: 5 Do You Dip or Chew Tobacco: No Hx Alcohol Use: No Hx Substance Use: Yes substance use type: marijuana Substance Use Type Other:: Has her marijuana card. Last Used Substance: Hours (ago) Review of Systems ROS Unobtainable: All systems reviewed & are unremarkable except as noted in HPI & below Physical Exam Vital Signs Last Vital Signs Temp 37.1 C 11/24/23 20:05 Pulse 82 11/24/23 19:52 Resp 16 11/24/23 15:27 BP 129/59 L 11/24/23 19:52 ENMT Mouth: no TMJ abnormality Thyromental Distance: > or= 3.5 Finger Breadths Mallampati Class: II Neck normal visual inspection and trachea midline; neck extension not limited Respiratory normal respiratory effort Auscultation: lungs clear to auscultation bilaterally Cardiovascular Rate/Rhythm: regular rate and regular rhythm Heart Sounds: no murmur Musculoskeletal Spine: normal cervical ROM Extremities: full ROM of extremities Neurologic moves all extremities Psychiatric Orientation: alert and oriented x 3 Testing Laboratory Results 11/24/23 09:48 11/24/23 09:48 Blood Type O Positive 11/24/23 09:48 Antibody Screen NEGATIVE 11/24/23 09:48
[2023-11-24] MEDS ORDERED: NALOXONE HCL 0.4 MG/1 ML VIAL/CARP IV PRN (21:11)
[2023-11-24] MEDS ORDERED: LIDOCAINE 2%/EPINEPHRINE 1:200,000 20 ML PF EPI STA (21:11)
[2023-11-24] MEDS ORDERED: NALBUPHINE HCL INJ 10 MG/ML AMP IV PRN (21:11)
[2023-11-24] MEDS ORDERED: ROPIVACAINE 0.5% PF 5 MG/ML 20 ML VIAL EPI PRN (21:11)
[2023-11-24] MEDS ORDERED: ePHEDrine sulfate 50 MG/ML AMP IV PRN (21:11)
[2023-11-24] MEDS ORDERED: SODIUM CHLORIDE 0.9% PF INJ 10 ML VIAL EPI STA (21:11)
[2023-11-24] MEDS ORDERED: fentaNYL citrate PF 100 MCG/2 ML VIAL EPI STA (21:11)
[2023-11-24] MEDS ORDERED: BUPIVACAINE 0.25% PF 30 ML VIAL EPI PRN (21:11)
[2023-11-24] MEDS ORDERED: NALOXONE HCL 1 MG in SODIUM CHLORIDE 0.9% 1,000 ML IV PRN (21:11)
[2023-11-24] MEDS ORDERED: LIDOCAINE 2% MPF LOCAL 5 ML VIAL EPI PRN (21:11)
[2023-11-24] MEDS ORDERED: fentaNYL citrate PF 100 MCG/2 ML VIAL EPI PRN (21:11)
[2023-11-24] MEDS ORDERED: BUPIVACAINE 0.25% PF 30 ML VIAL EPI STA (21:11)
[2023-11-24] MEDS ORDERED: SODIUM CHLORIDE 0.9% PF INJ 10 ML VIAL EPI PRN (21:11)
[2023-11-24] MEDS: LIDOCAINE 2%/EPINEPHRINE 1:200,000 20 ML PF ONE (21:17)
[2023-11-24] MEDS: fentaNYL citrate PF 100 MCG/2 ML VIAL ONE (21:18)
[2023-11-24] MEDS: BUPIVACAINE 0.25% PF 30 ML VIAL ONE (21:18)
[2023-11-24] MEDS: fentANYL 2 MCG/ML BUPIVacaine 0.125%-NSS 100ML BAG ONE (21:19)
[2023-11-24] MEDS: OXYTOCIN 30 UNITS/NSS 30 UNITS/500 ML BAG IV PRN (21:30)
[2023-11-24] MEDS: ONDANSETRON INJ 2 MG/ML 2 ML VIAL IV PRN (21:35)
[2023-11-24] MEDS: PENICILLIN GK 3 MU in DEXTROSE 5% 100 ML IV PRN (22:41)
[2023-11-24] MEDS: diphenhydrAMINE 50 MG/ML VIAL IV PRN (22:48)
--- NOTE | 2023-11-25 00:28 | Labor Progress Brief Note ---
Date of Service November 25, 2023 Assessment & Plan Admission and Anticipated Discharge Date Admission Date: November 24, 2023 Physical Exam Genitourinary: Manual OB Exam: + cervical dilation 3 cm, + cervical effacement 60% and + station high OB Exam Monitor Tracing: + external FHT monitor used, + external uterine monitor used, + category I and + normal FHT variability Results & Data Vital Signs (Past 12 Hours) Vital Signs Temp Pulse Resp BP Pulse Ox O2 Del Method 11/25/23 00:24 78 100 11/25/23 00:22 85 84 L 11/25/23 00:19 86 100 11/25/23 00:14 70 100 11/25/23 00:09 100 11/25/23 00:09 69 11/25/23 00:09 69 141/69 H 11/25/23 00:04 78 100 11/25/23 00:00 16 11/25/23 00:00 36.9 C 16 11/24/23 23:59 74 100 11/24/23 23:54 83 99 11/24/23 23:49 75 99 11/24/23 23:48 72 111/56 L 11/24/23 23:44 84 100 11/24/23 23:39 75 100 11/24/23 23:34 74 98 11/24/23 23:33 84 123/59 L 11/24/23 23:29 76 97 11/24/23 23:24 77 98 11/24/23 23:19 74 99 11/24/23 23:18 74 124/59 L 11/24/23 23:14 74 100 11/24/23 23:09 74 99 11/24/23 23:04 74 100 11/24/23 23:03 72 128/58 L 11/24/23 22:59 83 99 11/24/23 22:54 72 99 11/24/23 22:49 73 100 11/24/23 22:48 71 122/58 L 11/24/23 22:44 83 100 11/24/23 22:39 77 100 11/24/23 22:34 73 100 11/24/23 22:33 69 116/54 L 11/24/23 22:29 75 100 11/24/23 22:24 81 100 11/24/23 22:22 79 88 L 11/24/23 22:19 74 99 11/24/23 22:18 71 125/58 L 11/24/23 22:14 77 100 11/24/23 22:09 80 98 11/24/23 22:04 76 98 11/24/23 22:03 73 135/63 11/24/23 21:59 77 99 11/24/23 21:54 78 100 11/24/23 21:49 86 99 11/24/23 21:44 77 100 11/24/23 21:39 77 100 11/24/23 21:37 36.9 C 11/24/23 21:34 77 100 11/24/23 21:32 79 142/65 H 11/24/23 21:29 83 99 11/24/23 21:26 76 135/60 11/24/23 21:24 82 100 11/24/23 21:20 86 134/60 11/24/23 21:19 92 H 100 11/24/23 21:18 88 138/55 L 11/24/23 21:16 90 141/64 H 11/24/23 21:15 96 H 142/65 H 11/24/23 21:14 87 98 11/24/23 21:11 83 146/63 H 11/24/23 21:09 93 H 183/91 H 100 11/24/23 21:05 91 H 130/82 11/24/23 21:04 93 H 100 11/24/23 21:01 98 H 91 11/24/23 20:59 99 H 100 11/24/23 20:05 37.1 C 11/24/23 19:52 82 129/59 L 11/24/23 19:24 77 119/58 L 11/24/23 19:10 Room Air 11/24/23 19:05 18 11/24/23 19:05 18 11/24/23 18:52 82 143/85 H 11/24/23 18:22 82 155/68 H 11/24/23 18:16 37.1 C 11/24/23 15:28 75 138/72 11/24/23 15:27 16 11/24/23 15:27 36.8 C 16 11/24/23 14:09 84 142/79 H
[2023-11-25] MEDS: ePHEDrine sulfate 50 MG/ML AMP ONE (04:22)
[2023-11-25] MEDS: SODIUM CHLORIDE 0.9% PF INJ 10 ML VIAL ONE (04:22)
[2023-11-25] MEDS: fentANYL 2 MCG/ML BUPIVacaine 0.125%-NSS 100ML BAG EPI PRN (06:13)
[2023-11-25] MEDS: LEVOTHYROXINE SODIUM 75 MCG TABLET PO SCH (07:21)
--- NOTE | 2023-11-25 08:22 | Labor Progress Brief Note ---
Date of Service November 25, 2023 Assessment & Plan Admission and Anticipated Discharge Date Admission Date: November 24, 2023 Physical Exam Genitourinary: Manual OB Exam: + cervical dilation 3 cm and 4 cm, + cervical effacement 60%, + station -2 and + amniotic fluid clear OB Exam Monitor Tracing: + external FHT monitor used, + external uterine monitor used, + category I and + normal FHT variability AROM of forebag with Amni-hook copious amounts of clear fluid Results & Data Vital Signs (Past 12 Hours) Vital Signs Temp Pulse Resp BP Pulse Ox 11/25/23 08:19 83 100 11/25/23 08:14 83 100 11/25/23 08:13 73 168/75 H 11/25/23 08:12 78 86 L 11/25/23 08:09 70 100 11/25/23 08:04 70 96 11/25/23 07:59 70 100 11/25/23 07:56 65 130/61 11/25/23 07:54 74 100 11/25/23 07:49 79 100 11/25/23 07:44 72 100 11/25/23 07:41 72 144/62 H 11/25/23 07:40 18 11/25/23 07:40 37.0 C 18 11/25/23 07:39 73 100 11/25/23 07:36 85 88 L 11/25/23 07:34 72 100 11/25/23 07:29 70 100 11/25/23 07:27 109 H 140/64 11/25/23 07:24 73 100 11/25/23 07:19 78 100 11/25/23 07:14 79 100 11/25/23 07:11 84 132/69 11/25/23 07:09 73 99 11/25/23 07:04 83 99 11/25/23 07:00 18 11/25/23 07:00 18 11/25/23 06:59 75 98 11/25/23 06:55 71 124/58 L 11/25/23 06:54 76 99 11/25/23 06:49 77 98 11/25/23 06:44 71 99 11/25/23 06:40 79 124/54 L 11/25/23 06:39 78 99 11/25/23 06:34 83 98 11/25/23 06:30 18 11/25/23 06:30 18 11/25/23 06:29 76 98 11/25/23 06:25 70 127/60 11/25/23 06:24 73 98 11/25/23 06:19 73 98 11/25/23 06:14 84 100 11/25/23 06:12 79 125/59 L 11/25/23 06:09 81 99 11/25/23 06:04 80 99 11/25/23 06:02 16 11/25/23 06:02 36.9 C 16 11/25/23 05:59 78 98 11/25/23 05:56 83 11/25/23 05:56 95 H 145/64 H 88 L 11/25/23 05:54 93 H 99 11/25/23 05:49 80 97 11/25/23 05:44 77 97 11/25/23 05:42 74 137/62 11/25/23 05:39 79 97 11/25/23 05:34 77 97 11/25/23 05:29 81 97 11/25/23 05:26 75 143/66 H 11/25/23 05:24 78 97 11/25/23 05:19 76 97 11/25/23 05:14 79 97 11/25/23 05:12 78 151/69 H 11/25/23 05:09 80 96 11/25/23 05:04 85 96 11/25/23 05:00 16 11/25/23 05:00 16 11/25/23 04:59 71 96 11/25/23 04:56 77 126/60 11/25/23 04:54 76 97 11/25/23 04:49 77 97 11/25/23 04:44 75 97 11/25/23 04:43 76 128/58 L 11/25/23 04:39 74 96 11/25/23 04:34 80 97 11/25/23 04:29 75 97 11/25/23 04:27 73 145/67 H 11/25/23 04:24 75 97 11/25/23 04:19 71 98 11/25/23 04:14 85 99 11/25/23 04:10 71 138/78 11/25/23 04:09 73 98 11/25/23 04:08 36.9 C 11/25/23 04:04 86 100 11/25/23 04:00 18 11/25/23 04:00 18 11/25/23 03:59 79 100 11/25/23 03:54 98 11/25/23 03:54 89 11/25/23 03:54 93 H 120/57 L 11/25/23 03:49 76 97 11/25/23 03:44 84 96 11/25/23 03:40 75 124/67 11/25/23 03:39 85 98 11/25/23 03:34 89 100 11/25/23 03:29 84 95 11/25/23 03:25 88 134/70 11/25/23 03:24 94 H 98 11/25/23 03:19 82 98 11/25/23 03:14 78 97 11/25/23 03:09 82 123/60 97 11/25/23 03:04 85 96 11/25/23 03:00 16 11/25/23 03:00 16 11/25/23 02:59 85 97 11/25/23 02:54 97 11/25/23 02:54 86 11/25/23 02:54 93 H 124/60 11/25/23 02:49 84 95 11/25/23 02:47 89 89 L 11/25/23 02:44 73 94 11/25/23 02:39 80 119/62 97 11/25/23 02:34 88 96 11/25/23 02:30 16 11/25/23 02:30 16 11/25/23 02:29 82 95 11/25/23 02:24 85 118/59 L 95 11/25/23 02:19 78 96 11/25/23 02:14 83 95 11/25/23 02:09 78 119/59 L 97 11/25/23 02:04 77 97 11/25/23 02:00 16 11/25/23 02:00 16 11/25/23 01:59 79 95 11/25/23 01:58 16 11/25/23 01:58 36.9 C 16 11/25/23 01:54 85 121/58 L 95 11/25/23 01:49 86 96 11/25/23 01:44 80 99 11/25/23 01:39 96 11/25/23 01:39 79 11/25/23 01:39 77 119/56 L 11/25/23 01:34 83 96 11/25/23 01:30 16 11/25/23 01:30 16 11/25/23 01:29 86 95 11/25/23 01:24 81 127/60 96 11/25/23 01:19 90 95 11/25/23 01:14 82 97 11/25/23 01:09 94 11/25/23 01:09 85 11/25/23 01:09 85 121/58 L 11/25/23 01:04 86 94 11/25/23 00:59 83 98 11/25/23 00:54 80 124/63 98 11/25/23 00:49 87 97 11/25/23 00:44 81 98 11/25/23 00:39 99 11/25/23 00:39 77 11/25/23 00:39 72 137/66 11/25/23 00:34 72 100 11/25/23 00:30 70 137/64 11/25/23 00:29 71 100 11/25/23 00:24 78 100 11/25/23 00:22 85 84 L 11/25/23 00:19 86 100 11/25/23 00:14 70 100 11/25/23 00:09 100 11/25/23 00:09 69 11/25/23 00:09 69 141/69 H 11/25/23 00:04 78 100 11/25/23 00:00 16 11/25/23 00:00 36.9 C 16 11/24/23 23:59 74 100 11/24/23 23:54 83 99 11/24/23 23:49 75 99 11/24/23 23:48 72 111/56 L 11/24/23 23:44 84 100 11/24/23 23:39 75 100 11/24/23 23:34 74 98 11/24/23 23:33 84 123/59 L 11/24/23 23:29 76 97 11/24/23 23:24 77 98 11/24/23 23:19 74 99 11/24/23 23:18 74 124/59 L 11/24/23 23:14 74 100 11/24/23 23:09 74 99 11/24/23 23:04 74 100 11/24/23 23:03 72 128/58 L 11/24/23 22:59 83 99 09/17/24 22:54 72 99 11/24/23 22:49 73 100 11/24/23 22:48 71 122/58 L 11/24/23 22:44 83 100 11/24/23 22:39 77 100 11/24/23 22:34 73 100 11/24/23 22:33 69 116/54 L 11/24/23 22:29 75 100 11/24/23 22:24 81 100 11/24/23 22:22 79 88 L 11/24/23 22:19 74 99 11/24/23 22:18 71 125/58 L 11/24/23 22:14 77 100 11/24/23 22:09 80 98 11/24/23 22:04 76 98 11/24/23 22:03 73 135/63 11/24/23 21:59 77 99 11/24/23 21:54 78 100 11/24/23 21:49 86 99 11/24/23 21:44 77 100 11/24/23 21:39 77 100 11/24/23 21:37 36.9 C 11/24/23 21:34 77 100 11/24/23 21:32 79 142/65 H 11/24/23 21:29 83 99 11/24/23 21:26 76 135/60 11/24/23 21:24 82 100 11/24/23 21:20 86 134/60 11/24/23 21:19 92 H 100 11/24/23 21:18 88 138/55 L 11/24/23 21:16 90 141/64 H 11/24/23 21:15 96 H 142/65 H 11/24/23 21:14 87 98 11/24/23 21:11 83 146/63 H 11/24/23 21:09 93 H 183/91 H 100 11/24/23 21:05 91 H 130/82 11/24/23 21:04 93 H 100 11/24/23 21:01 98 H 91 11/24/23 20:59 99 H 100
[2023-11-25] MEDS: OXYTOCIN 30 UNITS/NSS 30 UNITS/500 ML BAG IV PRN (09:40)
[2023-11-25] MEDS ORDERED: NITROGLYCERIN/D5W 100 MCG/ML BTL ONE (09:52)
[2023-11-25] MEDS ORDERED: PHENYLEPHRINE 100MCG/ML 10ML SYR IV ONE (09:52)
[2023-11-25 10:04] LABS: Base Excess Cord Arterial Bld -6.6 mEq/L (-9-1.8); Base Excess Cord Venous Blood -2.2 mEq/L (-7.7-1.9); CO2 Cord Arterial Blood 62 mmHg (39.1-73.5); Cord Venous Blood HCO3 25 mmol/L (18.4-26.8); Cord Venous Blood PCO2 51 mmHg (30.4-57.2); Cord Venous Blood PO2 34 mmHg (14.1-43.3); HCO3 Cord Arterial Blood 23 mmol/L (19.7-28.5); Oxygen Sat Cord Arterial Blood < 60.0 % (<60); PO2 Cord Arterial Blood 22 mmHg (4.1-31.7); pH Cord Arterial Blood 7.18 (7.1-7.38)
--- NOTE | 2023-11-25 10:23 | Anesthesia Procedure Note ---
Date of Service November 25, 2023 Anesthesia Post Epidural Note Vital Signs Vital Signs: Temp Pulse Resp BP Pulse Ox O2 Del Method 37.0 C 72 18 118/64 69 L Room Air 11/25/23 07:40 11/25/23 10:12 11/25/23 07:40 11/25/23 10:12 11/25/23 09:57 11/24/23 19:10 Notes Mental Status: alert / awake / arousable and participated in evaluation Patient Amnestic to Procedure: No Nausea / Vomiting: adequately controlled Pain: adequately controlled Airway Patency, RR, SpO2: stable & adequate BP & HR: stable & adequate Hydration State: stable & adequate Neuraxial Anesthesia: was administered and sensory block is resolving Anesthetic Complications: no major complications apparent and Pt Satisfied with anesthetic care Epidural: Removed without complications and With tip intact Notes: See OB note for full details. OB had asked for uterine relaxation to assist with breech vaginal delivery. 100mcg nitroglycerin IV was administered with patient on monitor. SBP in low 100's afterwards so was given 100mcg phenylephrine IV (after baby had been delivered) with excellent results. She denied any dizziness/lightheadedness. Mattress Renovator and nursery team attended to and intubated child. See their note for details.
[2023-11-25] MEDS ORDERED: bisacodyL 10 MG SUPP PR PRN (10:30)
[2023-11-25] MEDS ORDERED: HYDROCORTISONE ACETATE 25 MG SUPP PR PRN (10:30)
[2023-11-25] MEDS ORDERED: ACETAMINOPHEN 325 MG TAB PO PRN (10:30)
[2023-11-25] MEDS ORDERED: DIPHTHER/TETAN/PERTUS Vaccine (Tdap, Adol/Adult) 0.5mL IM ONE (10:30)
[2023-11-25] MEDS ORDERED: OXYTOCIN 30 UNITS/NSS 30 UNITS/500 ML BAG IV PRN (10:30)
--- NOTE | 2023-11-25 12:28 | Communication Note ---
Date of Service: November 25, 2023 I presented to bedside after emergency leung rang from delivery room. Upon my arrival, fetus had been delivered to the level of the head with Dr. Castrejon holding legs and body in blue towel. He had attempted delivery of head however it did not deliver so they were in process of maternal repositioning and requesting IV medication for uterine relaxation. He again attempted to deliver the head after maternal repositioning with my assistance but it did not deliver. The patient was then repositioned again and at that point the MSV maneuver was attempted and head did then deliver. Cord was clamped and cut and infant immediately transferred to crib for resuscitation by calendering supervisor and nursing staff. Please see delivering provider's note for complete delivery note and events.
[2023-11-25] MEDS: IBUPROFEN 600 MG TAB PO PRN (12:34)
[2023-11-25] MEDS: BENZOCAINE 20% SPRY 85 APPLN/85 GM CAN EXT PRN (14:38)
--- NOTE | 2023-11-25 15:52 | Delivery Summary ---
Vaginal Delivery Summary Date of Service November 25, 2023 Vaginal Delivery Summary I was called to see the patient who c/o vaginal pressure. She was found to be fully dilated with a double footling breech presentation. I informed her that we needed to do a stat for safe delivery of the baby. Everyone was called for the OR. While getting ready for the I was called back in to the room and the patient had a strong urge to push as both feet were now out from the vagina. I asked for the fireworks assembler and anesthesia to come stat. I then grabbed both feet with a towel and delivered the feet and body without difficulty and then both arms atraumatically one at a time without a problem. At this point the head did not deliver and anesthesia gave the patient Nitroglycerin IV for uterine relaxation. After several attempts to dislodge the head including rotating the shoulders 180 degrees and a midline episiotomy was done, I then placed the patient in the knee chest position to try to dislodge the head. The patient continued to push but without delivery of the head. I then flipped the patient over and with the help of Dr. Hines attempted to flex the head with the [id number]-[id number]-[id number] maneuver and use suprapubic pressure the head was delivered. There was a nuchal cord x1. The cord was clamped and cut and the baby was transferred to the crib for resuscitation. Cord was obtained for blood gas. Placenta was delivered spontaneously and intact and submitted to pathology. The midline episiotomy was repaired in layers with 3/0 Vicryl suture. All remaining sponge, needle and instrument counts were correct. Apgars and weight pending. QBL 1020 ml. Mom stable and baby to nursery.
[2023-11-25] MEDS: ACETAMINOPHEN 325 MG TAB PO PRN (16:31)
[2023-11-25 19:56] VITALS: RESP 18
[2023-11-25] MEDS: DOCUSATE SODIUM 100 MG CAP PO SCH (20:04)
[2023-11-26 02:23] VITALS: O2SAT 99
[2023-11-26 06:24] LABS: Hematocrit (blood only) 25.9 % (37.0-47.0); Hemoglobin 8.2 g/dl (12.0-16.0); Mean Corpuscular Hemoglobin 28.8 pg (25.0-34.0); Mean Corpuscular Hgb Conc 31.7 g/dL (32.0-36.0); Mean Corpuscular Volume 90.9 fL (80.0-100.0); Mean Platelet Volume 9.4 fL (9.4-12.4); Platelet Count 105 K/uL (130-400); RDW Coefficient of Variation 16.5 % (11.5-14.5); RDW Standard Deviation 54.1 fL (36.4-46.3); Red Blood Count 2.85 M/uL (4.20-5.40); White Blood Count 7.04 K/ul (4.8-10.8)
--- NOTE | 2023-11-26 08:31 | Obstetrical Progress Note ---
Date of Service November 26, 2023 Assessment & Plan Admission and Anticipated Discharge Date Admission Date: November 24, 2023 OB Progress Note abdomen soft and non tender no calf tenderness ambulating well vaginal bleeding scant hgb 8.2 patient requests discharge infant is at [place] Results & Data Vital Signs (Past 12 Hours) Vital Signs Temp Pulse Resp BP Pulse Ox O2 Del Method 11/25/23 23:30 36.4 C L 84 18 128/79 99 Room Air
[2023-11-26] MEDS: FERROUS SULFATE 325 MG TAB PO SCH (08:56)
[2023-11-26] MEDS: PRENATAL VITAMIN 1 TAB PO SCH (08:56)
[2023-11-26 10:15] VITALS: BP 133/78; PULSE 96; TEMP 97.9
[2023-11-26 11:42] LABS: Marijuana Quant, GCMS Urine 333 ng/mL (<5)
[2023-11-26] MEDS ORDERED: bisacodyL 5 MG TABEC PO SCH (20:00)
== END 2023-11-26 10:45 | disposition home or self-care (01) | DRG 807 ==
LOC: 4S1 07:45 → 4E2 11-25 13:34